=== PATIENT | female | born 1990 | race African-American/Black ===

== ENCOUNTER 2018-09-24 14:49 | Emergency (ER) | payer MEDICAID, OTHER ==
[~2018-09-24] VITALS: Ht 165.1 cm; Wt 90.7 kg
[2018-09-24 15:02] VITALS: BP 131/59
[2018-09-24 15:54] LABS: Basophils # (auto) 0.1 uL; Basophils % (auto) 0.4 % (0.0-2.0); Eosinophils # (auto) 0.1 uL; Eosinophils % (auto) 0.3 % (0.0-7.0); Hematocrit 39.8 % (36.0-46.0); Hemoglobin 12.8 g/dL (12.2-16.2); Lymphocytes # (auto) 1.2 uL; Lymphocytes % (auto) 8.3 % (10.0-50.0); Mean Corpuscular Hemoglobin 27.1 pg (28.0-32.0); Mean Corpuscular Hgb Conc. 32.3 g/dL (32.0-36.0); Mean Corpuscular Volume 83.9 fL (80.0-100.0); Monocytes # (auto) 0.7 uL; Monocytes % (auto) 4.5 % (0.0-12.0); Neutrophils # (auto) 12.7 uL; Neutrophils % (auto) 86.5 % (37.0-80.0); Platelet Count (auto) 291 10^3/uL (140-450); Red Blood Cells 4.74 10^6/uL (4.0-5.20); Red Cell Distribution Width 13.8 % (11.8-14.3); White Blood Cell 14.7 10^3/uL (4.4-10.8)
[2018-09-24 16:12] LABS: Albumin 4.1 g/dL (3.4-5.0); BUN/Creatinine Ratio 10.2; Calcium 8.8 mg/dL (8.5-10.1); Potassium 3.5 mmol/L (3.5-5.1)
[2018-09-24 16:16] LABS: Bilirubin, Total 0.7 mg/dL (0.2-1.0); Total Protein 8.5 g/dL (6.4-8.2)
== END 2018-09-24 18:11 | disposition left against medical advice (07) ==
LOC: ER 14:52
DX: J40 Bronchitis, not specified as acute or chronic (principal); R11.2 Nausea with vomiting, unspecified; R19.7 Diarrhea, unspecified; F12.90 Cannabis use, unspecified, uncomplicated
CPT/HCPCS: 36415; 80053; 85025